=== PATIENT | female | born 1945 | race Caucasian/White ===

== ENCOUNTER 2024-12-23 10:57 | Outpatient (AMB) | payer MEDICARE, SELFPAY ==
--- NOTE | 2024-12-23 10:58 | MHC.OFFVIS ---
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 The chronic back pain has intensified over the year, with a notable increase in left lower extremity discomfort. She reports having undergone left hip replacement in 2020, after which she developed continued numbness and foot drop on the left side due to nerve damage from the surgery per patient. Patient reports EMG study was performed after hip surgery, this report is not available today for review. She reports her right hip might need replacement in the near future as well. Previous attempts at pain management have included physical therapy 6 months ago with little effect, and planned back injections at [facility] were not completed due to cancellations. The patient's low back pain exacerbates with bending, prolonged sitting especially on hard surfaces, climbing stairs and presents with associated left-sided symptoms including leg numbness, tingling and chronic left foot numbness and foot drop. MRI lumbar spine report is noted below. Pain affects her daily activities and functioning, social interactions with her family, especially grandchildren, mobility, sleep and quality of life. Denies any fever or chills, abdominal or groin pain, bladder or bowel dysfunction or saddle anesthesia. - Affect: Chronic pain impacts functionality, but not significantly affecting mood or psychological well-being. - Analgesia: Tylenol Arthritis used with noted continuous pain management needs. - Adverse Effects: None reported. - Activities of Daily Living: Altered due to pain and left foot drop, limiting prolonged walking or standing. - Aberrant Drug Related Behaviors: None noted. Location: Low back pain radiates to left buttock and posterior LLE to the knee Duration: Chronic pain, worsening over past 1 year Characteristics of symptom or complaint: Aching, dull, tiring, numbness, tingling, heavy, tiring Aggravating or associated factors: Movements, bending, climbing, prolonged sitting, standing Relieving factors: Tylenol Arthritis, duloxetine, heat therapy, movement adjustments Treatment: PT, left foot AFO, lumbar MRI, evaluations at [facility] and [facility] Medical History (Updated 12/23/24 @ 12:54 by DANITZA Irene) Vitamin D deficiency Sciatica, left side Thyroid nodule Osteoarthritis of hips, bilateral Left foot drop Hyperlipidemia Chronic kidney disease, stage 2 (mild) Lumbar degenerative disc disease Surgical History S/P removal of thyroid nodule Hx of appendectomy H/O: hysterectomy History of left hip replacement Social History Alcohol intake: current Alcohol intake frequency: a few times a week Alcohol type: beer and wine Patient Tobacco Use Status: Former Tobacco user Review of Systems Const Details: - Musculoskeletal: Reports left foot numbness, left-sided radiculopathy. Denies any recent joint swelling. - Neurological: Reports left foot drop, numbness in left leg. - Genitourinary: Reports bladder urgency post-bladder lift, denies incontinence. All systems reviewed & are unremarkable except as noted in HPI and below Physical Exam Vital Signs: Last Vital Signs Pulse 64 12/23/24 11:04 BP 133/60 12/23/24 11:04 Pulse Ox 100 12/23/24 11:04 Oxygen Delivery Method Room Air 12/23/24 11:04 General: Appears afebrile. Alert and oriented. Mood and affect appropriate. Follows and participates in conversation appropriately. Respiratory effort is unlabored. No cough. Able to transition from sit to stand unassisted. Ambulates with normal heel strike and toe off on the right. Unable to stand on left heel/toes due to foot drop; decreased sensation in left foot. Left-sided weakness noted in foot dorsiflexion and leg elevation. General: Yes no CVA tenderness Back/Spine/Pelvis Other: Limited lumbar ROM due to pain. Mildly antalgic gait, gets up with guarding her gait on the left. Mild limping. Lumbar flexion forward and bending reproduces moderate pain. Axial rotation and extension reproduces mild pain. No midline tenderness in the thoracic or lumbar spine. Demonstrates 5/5 right 4/5 left strength of quadriceps bilaterally as well as 3/5 left and 5/5 right flexion/dorsiflexion of bilateral feet against resistance. 2+ pedal pulses bilaterally. Straight leg rise with dorsiflexion negative bilaterally. +2 patellar and absent left and diminished right achilles reflexes bilaterally. Facet loading test positive bilaterally. Pepper sign positive on the left, Adrián?sis negative on the right, not tested on left due to previous SHIRLEY, Pelvic compression and Stinchfield tests are positive on the left. No groin pain with I/E hip rotations. Valsalva maneuver negative. Back: no CVA tenderness Cervical Spine: cervical ROM normal, No cervical muscular tenderness and No Cervical spine tenderness Thoracic/Lumbar Spine: thoracic and lumbar spine normal to inspection, No Thoracic/lumbar spine scar(s), Lasegue's sign negative, straight leg raise negative bilaterally, pain with thoraco-lumbar ROM, No paraspinal muscle tenderness, thoraco-lumbar ROM limited, No thoracic spinal tenderness and No lumbar spinal tenderness Pelvis: buttock tenderness on the left and sciatic notch tenderness on the left Sacroiliac joints: on the right nontender and on the left tender to palpation Results Reviewed Results Reviewed: Assessment & Plan Assessment & Plan (1) Lumbar degenerative disc disease: Code(s): M51.369 - Other intervertebral disc degeneration, lumbar region without mention of lumbar back pain or lower extremity pain Category: Medical (2) Vertebrogenic low back pain: Code(s): M54.51 - Vertebrogenic low back pain Category: Medical (3) Piriformis syndrome of left side: Code(s): G57.02 - Lesion of sciatic nerve, left lower limb Category: Medical (4) Left foot drop: Code(s): M21.372 - Foot drop, left foot Category: Medical (5) Sciatica, left side: Code(s): M54.32 - Sciatica, left side Category: Medical (6) Lumbar spondylosis: Code(s): M47.816 - Spondylosis without myelopathy or radiculopathy, lumbar region Category: Medical Plan For the patient's lumbar degenerative disc disease with left-sided radiculopathy, plan to review lumbar MRI images to confirm vertebral endplate degeneration and EMG from [facility] is also planned to assess neurological status in the left extremity. Discussed potential interventions for chronic low back pain with sciatica including diagnostic vs therapeutic injections, neuromodulation with temporary and permanent stimulation, and ablation procedures, including RFA and BVN ablation. Emphasized possible risks and ensured understanding before obtaining patient consent for procedures. Aim to achieve functional improvement and pain reduction through minimal invasive interventions. Schedule left piriformis muscle diagnostic nerve block with local and fluoroscopy. Expectations, risks and benefits were reviewed. Patient is aware she will be contacted to schedule this procedure. All questions were answered and the patient is in agreement of plan. Follow-up after injections and sooner as needed. Patient was informed and verbally consented to the use of an ambient scribe for clinic note documentation during this visit. Patient Instructions: I discussed with the patient and her that management will engage MRI review and EMG for thorough evaluation of her spinal and neurological status. We reviewed options for managing axial low back pain, lumbar degenerative disc disease with Modic type II endplate changes and associated left buttock pain including planned fluoroscopy-guided nerve block injections for piriformis muscle pain once insurance approval is obtained. I informed the patient of potential procedural risks including pain exacerbation and nerve irritation. Provided assurance through the use of continuous feedback and fluoroscopy guidance during the procedure. Discussed possible insurance timelines; permissible adjustments when cancellations arise. Consent obtained for further diagnostics and outlined potential for future interventions depending on findings. 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 - Expect a call regarding scheduling pending insurance approval for nerve block injections. - Continue using Tylenol Arthritis as needed for pain management. - Report any adverse reactions following upcoming procedures or if new symptoms arise. - Avoid using Aspirin if undergoing injection procedure preparation. - Maintain movement to avoid stiffness but avoid activities aggravating pain, such as prolonged bending or heavy lifting. Coding Level of Care Code New Pt Level 4 (60103) Complex EM visit Add On G2211 Diagnoses Lumbar degenerative disc disease M51.369 Vertebrogenic low back pain M54.51 Piriformis syndrome of left side G57.02 Left foot drop M21.372 Sciatica, left side M54.32 Lumbar spondylosis M47.816
[2024-12-23 11:04] VITALS: BP 133/60; PULSE 64; O2SAT 100; BMI 26.4
--- OUTSIDE RECORDS SUMMARY | 2024-12-23 12:23 | XMS_ITS | Clinical Summary ---
Author Organization [facility] Address [address] [address] Phone Care Team Providers Care Trader Fixed Income Name Role Phone Jacqueline Parrish Primary Care Provider Allergies No known active allergies Medications Medication Sig Dispensed Refills Start Date End Date Status pravastatin (PRAVACHOL) 80 MG tablet 02/27/2023 Active DULoxetine (CYMBALTA) 60 MG capsule 02/28/2023 Active Active Problems No known active problems Social History Tobacco Use Types Packs/Day Years Used Date Smoking Tobacco: Never Assessed Education Answer Date Recorded Are you interested in more education? Not on mook e 02/11/2023 Are you concerned about learning? Not on file 02/11/2023 No 02/11/2023 No 02/11/2023 Digital Access Answer Date Recorded No 03/12/2023 No 03/12/2023 No 03/12/2023 Reliable internet access at home? Not on file 03/12/2023 Device with a working camera? Not on file Sex and Gender Information Value Date Recorded Sex Assigned at Not on file Gender Identity Not on file Sexual Orientation Not on file Plan of Treatment Health Maintenance Due Date Last Done Comments Adult Td,Tdap Booster 1945 DEPRESSION SCREENING 1959 SMOKING Hx and SMOKELESS TOBACCO SCREENING 12/13/1960 HEPATITIS C SCREENING 12/13/1965 PNEUMOCOCCAL VACCINES (50+ years) (1 of 1 - PCV) 12/13/1997 OSTEOPOROSIS SCREENING INITI AL (ONE-TIME) 12/13/2012 RSV VACCINE (1 - 1-dose 75+ series) 12/13/2022 ZOSTER VACCINES (2 of 2) 09/25/2023 07/31/2023 INFLUENZA VACCINE (#1) 2024 COVID-19 VACCINE (3 - 2023-2 5 season) 2024 01/14/2021, 12/17/2020 LIPID PANEL 03/01/2029 03/01/2024 HEPATITIS A VACCINES Aged Out No long er eligible based on patient's age to complete this topic HIB VACCINES Aged Out No longer eligi ble based on patient's age to complete this topic MENINGOCOCCAL VACCINES (ACWY) Aged Out No longer eligible based on patient's age to complete this topic Medical Devices Not on file Procedures Procedure Name Priority Date/Time Associated Diagnosis Comments LIPID PANEL Routine 03/01/2024 9:38 AM EDT Stage 2 chronic kidney disease Hyperlipidemia, unspecified hyperlipidemia type from Last 3 Months or Most Recently Relevant to Health Maintenance Results * (ABNORMAL) Lipid panel (03/01/2024 9:38 AM EDT) HDL 72 mg/dL [facility] Comment: ? Interpretation <40 mg/dL: Low HDL cholesterol (major risk factor for CHD) Greater than or equal to 60 mg/dL: High HDL cholesterol ( negative risk factor for CHD) HDL - cholesterol is affected by a number of factors, e.g. smoking, excerise, hormones, sex and age. CHOLESTEROL 182 0 - 240 mg/dL [facility] TRIGLYCERIDES 99 30 - 160 mg/dL [facility] LDL 90 50 - 129 mg/dL [facility] Comment: LDL levels in terms of risk for coronary heart disease: <100 mg/dL: Optimal 100-129 mg/dL: Near or above optimal 130-159 mg/dL: Borderline high 160-189 mg/dL: High >190 mg/dL: Very High CARDIAC RISK RATIO 2.5(L) 3.3 - 4.4 C [facility] Blood 03/01/2024 9:38 AM EDT 03/01/2024 9:47 AM EDT Jacqueline NIETO LAB BLOOD ORDERABLES [facility] [address] [place] [address] from Last 3 Months or Most Recently Relevant to Health Maintenance Care Teams Trader Fixed Income Relationship Specialty Start Date End Date Jacqueline Parrish [place] [employer] [place] [address] PCP - General 09/16/22 Additional Source Comments The information contained in this document represents components of the legal health record. It is not the complete legal health record.[facility]
--- OUTSIDE RECORDS SUMMARY | 2024-12-23 12:23 | XMS_ITS | Clinical Summary ---
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 Role Phone Unavailable Primary Care Provider Unavailabl e Social History Tobacco Use Types Packs/Day Years Used Date Smoking Tobacco: Never Assessed Comments Unknown Sex and Gender Information Value Date Recorded Sex Assigned at Not on file Legal Sex Female 1:27 PM EDT Gender Identity Not on file Sexual Orientation Not on file Plan of Treatment Health Maintenance Due Date Last Done Comments Depression: Screening Annual ly using PHQ-2/9 in Adults 18 yrs or above (or HM Modifier)([facility]) 12/13/1965 Hepatitis C Virus Infection in Adolescents and Adults: Screening (or Modifier) ([facility]) 12/13/1965 SDOH Screening Reminder: Seda gilmar for all adults ([facility]) 12/13/1965 Tobacco Smoking Cessation: i n Adults excluding Women: Behavioral and Pharmacotherapy Interventions ([facility]) 12/13/1965 DTaP/Tdap/Td Vaccines ([facility]) (1 - Tdap) 12/13/1966 Lipid Screening: Every 5 yrs for Women aged 45+ (or HM Modifier) ([facility]) 12/13/1993 Pneumococcal Vaccination Scr eening: Patients 65+ yrs of age ([facility]) (1 of 1 - PCV) 12/13/1997 Zoster/Shingles Vaccine Seri es Screening: Adults aged 18+ yrs (or HM Modifiers)([facility]) (1 of 2) 12/13/1997 Osteoporosis Screening to Pr event Fractures: Women aged 65 years+ ([facility]) 12/13/2012 RSV Vaccines (1 - 1-dose 75+ series) 12/13/2022 Flu Vaccination: Ages 65+: Y early High Dose Recommended (or Modifier)([facility]) 05/16/2024 COVID-19 Vaccine Screening: Initial Series and Booster Status ([facility]) (2023- season) 2024 Medical Devices Not on file Insurance [facility]
--- OUTSIDE RECORDS SUMMARY | 2024-12-23 12:23 | XMS_ITS | Encounter Summary ---
Author Organization 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 Role Phone Jacqueline Parrish Primary Care Provider [phone] Encounter Details Date Type Department Care Team (Late st Contact Info) Description 09/16/2022 Transcribe Orders Virtual Department [address] [place] [address] Jacqueline Parrish PA [address] [place] [id number] Dizziness (Primary Dx) Social History Tobacco Use Types Packs/Day Years Used Date Smoking Tobacco: Never Assessed Sex and Gender Information Value Date Recorded Sex Assigned at Not on file Gender Identity Not on file Sexual Orientation Not on file documented as of this encounter Plan of Treatment Not on file documented as of this encounter Visit Diagnoses Diagnosis Dizziness- Primary Dizziness and giddiness documented in this encounter Care Teams Class B Truck Driver Relationship Specialty Start Date End Date Jacqueline Parrish PA [address] [place] [id number] PCP - General 09/16/22 documented as of this encounter Additional Source Comments The information contained in this document represents components of the legal health record. It is not the complete legal health record.[facility]
--- OUTSIDE RECORDS SUMMARY | 2024-12-23 12:24 | XMS_ITS | Continuity of Care Document ---
Author Organization [facility] Address [address] [place] [address]- Care Team Providers Care Product Development Director Name Role Phone Den Nash Primary Care Physician [phone] Encounter [facility] Date(s): 11/14/24 - 12/14/24 [facility] [address] [place] [address]- Encounter Type: Triage Allergies, Adverse Reactions, Alerts No Known Allergies Immunizations Given and Recorded Vaccine Date Status Refusal Reason zoster vaccine, inactivated 11/18/23 Recorded zoster vaccine, inactivated 07/31/23 Recorded SARS-CoV-2 (COVID-19) mRNA-1273 vaccine 01/14/21 R ecorded SARS-CoV-2 (COVID-19) mRNA-1273 vaccine 12/17/20 R ecorded Medications calcium (as carbonate) 500 mg oral tablet, chewable 1 tablet = 500 mg, Daily, 0 Refills, Maintenance, 02/13/24 1:18:00 PM EDT, Partial fill upon patientrequest if the prescription is for a schedule II opioid drug. Start Date: 02/13/24 Status: Ordered Repeat number: 1 duloxetine 60 mg oral enteric coated capsule 1 capsule = 60 mg, By Mouth, Daily, # 90 capsule, 3 Refills, Maintenance, 09/14/21 12:26:00 PM EST,EC Capsule, [facility], Partial fill upon patient request if the prescription is for a schedule II opioid drug., 156, cm, 03/26/21 9:23:00 EDT, Height, 62.6, kg, 03/01/21 10:52:00 EDT, Dry Weight Start Date: 09/14/21 Status: Ordered Quantity: 90.0 Unit: capsule Repeat number: 4 mirabegron 50 mg oral tablet, extended release 1 tablet = 50 mg, By Mouth, Daily, do not crush or chew, # 30 tablet, 5 Refills, Maintenance, 07/09/24 9:12:00 AM EDT, ER Tablet, [facility]/pharmacy #[id number], Partial fill upon patient request if the prescription is for a schedule II opioid drug., 155, cm, 04/08/24 11:04:00 EDT, Height, 65.8, kg, 04/08/24 11:04:00 EDT, Dry Weight Start Date: 07/09/24 Status: Ordered Quantity: 30.0 Unit: tablet Repeat number: 6 Rosuvastatin = 40 mg, By Mouth, Daily at bedtime, 0 Refills, Maintenance, 04/04/24 4:44:00 PM EDT, Partial fill upon patient request if the prescription is for a schedule II opioid drug. Start Date: 04/04/24 Status: Ordered Repeat number: 1 Tylenol 325 mg oral tablet 650 mg, 2, tablet, By Mouth, Every 4 hours, PRN, # 50 tablet, Refills 0, Tot. Refills 0, Maintenance, for pain, 04/08/24 1:18:00 PM EDT, Route to Pharmacy Electronically, [facility]/pharmacy #[id number], Partial fill upon patient request if the prescription is for a schedule II opioid drug., 155, cm, 04/08/24 11:04:00 EDT, Height, 65.8, kg, 04/08/24 11:04:00 EDT, Dry Weight Start Date: 04/08/24 Status: Ordered Quantity: 50.0 Unit: tablet Repeat number: 1 Vitamin C 250 mg oral tablet 1 tablet = 250 mg, By Mouth, Daily, 0 Refills, Maintenance, 02/13/24 1:17:00 PM EDT, Partial fill upon patient request if the prescription is for a schedule II opioid drug. Start Date: 02/13/24 Status: Ordered Repeat number: 1 Problem List Condition Confirmation Course Effective Dates Status H ealth Status Informant Chronic kidney disease, stage 2 (mild) Confirmed Active Other intervertebral disc degeneration, lumbar region Confirmed Active Left foot drop Confirmed Active Hyperlipidemia, unspecified Confirmed Active OA (osteoarthritis) of hip; bilateral Confirmed Active Sciatica of left side Confirmed Active Thyroid nodule Confirmed Active Vitamin D deficiency, unspecified Confirmed Active Procedures Procedure Date Related Diagnosis Body Site Status Bladder care/ Implant; Lift 1 04/08/24 Completed Appendectomy Completed Thyroid nodule Removed 2 Completed 1Notes in [facility] 2per previous PCP notes: Nodule removed from thyroid at [facility] (in ) Social History Social History Type Response Smoking Status Former smoker; Tobac co user in household: No; Other: Quit 1970; entered on: 03/05/18 Sex Sex Representation Female (finding) Patient Care team information Care Team Personnel Name: Keke Contreras RN Position: [facility] RN Member Role: Primary Care Nurse Name: Den Nash Position: [facility] PCO Associate Professional Member Role: PCP Address: [address] [place] [address] Telecom: Care Team Related Persons Name: YANIV MCFARLAND Insurance Providers Guarantor name: MARGI CMFARLAND Health Plan Information #: 1 Payer: MEDICARE PART B OUTPT Member Number: NA Policy Number: NA Group Number: NA Health Plan Information #: 2 Payer: MEDEX Member Number: NA Policy Number: NA Group Number: NA
--- OUTSIDE RECORDS SUMMARY | 2024-12-23 12:24 | XMS_ITS | Continuity of Care Document ---
Author Organization [facility] [employer] Address [address] [place] [address], [address] [place] [address]- Care Team Providers Care Music Cataloguer Name Role Phone Claire Lambert MD Primary Care Physician [phone] [place] [facility] [place]): [place] 11/27/24 [facility] [employer] [employer] [address], [address] [place], [place] [address] Encounter Type: Triage Allergies, Adverse Reactions, Alerts [...] Refills, Maintenance, 09/14/21 12:26:00 PM EST,EC Capsule, [facility], Partial fill upon patient request if the prescription is for a schedule II opioid drug., 156, cm, 03/26/21 9:23:00 EDT, Height, 62.6, kg, 03/01/21 10:52:00 EDT, Dry Weight Start Date: 09/14/21 Status: Ordered Quantity: 90.0 Unit: capsule Repeat number: 4 ibuprofen 600 mg oral tablet 600 mg, 1, tablet, By Mouth, 4 times a day, PRN, # 40 tablet, Refills 0, Tot. Refills 0, Maintenance, for pain, 04/08/24 1:18:00 PM EDT, Route to Pharmacy Electronically, [facility]/pharmacy #[id number], Partial fill upon patient request if the prescription is for a schedule II opioid drug., 155, cm, 04/08/24 11:04:00 EDT, Height, 65.8, kg, 04/08/24 11:04:00 EDT, Dry Weight Start Date: 04/08/24 Status: Ordered Quantity: 40.0 Unit: tablet Repeat number: 1 mirabegron 25 mg oral tablet, extended release 1 tablet = 25 mg, By Mouth, Daily, do not crush or chew, # 30 tablet, 6 Refills, Maintenance, 06/11/24 11:20:00 AM EDT, ER Tablet, [facility]/pharmacy #[id number], Partial fill upon patient request if the prescription is for a schedule II opioid drug., 155, cm, 04/08/24 11:04:00 EDT, Height, 65.8, kg, 04/08/24 11:04:00 EDT, Dry Weight Start Date: 06/11/24 Status: Ordered Quantity: 30.0 Unit: tablet Repeat number: 7 mirabegron 50 mg oral tablet, extended release 1 tablet = 50 mg, By Mouth, Daily, do not crush or chew, # 30 tablet, 5 Refills, Maintenance, 07/09/24 9:12:00 AM EDT, ER Tablet, [facility]/pharmacy #[id number], Partial fill upon patient request [...] 1:18:00 PM EDT, Route to Pharmacy Electronically, [facility]/pharmacy #[id number], Partial fill upon patient request [...] Effective Dates Status H ealth Status Informant Carpal tunnel syndrome, bilateral upper limbs Confirmed Active Chronic kidney disease, stage 2 (mild) Confirmed Active Other intervertebral disc degeneration, lumbar region Confirmed Active History of squamous cell carcinoma, removed 1 Confirmed Active Hyperlipidemia, unspecified Confirmed Active Dermatitis, unspecified 2 Confirmed Active OA (osteoarthritis) of hip; bilateral Confirmed Active Thyroid nodule Confirmed Active Vitamin D deficiency, unspecified Confirmed Active 1Dr Jeff, Derm 2Per previous PCP notes: dyshidrotic eczema Social History Social History Type Response Smoking Status Former smoker; Tobac co user in household: No; Other: Quit 1970; entered on: 03/05/18 Sex Sex Representation Female (finding) Patient Care team information Care Team Personnel Name: Claire Lambert MD Position: [facility] Outreach Member Role: PCP Address: [address] [place] [address] [place] [address]- Telecom: Name: Keke Contreras RN Position: [facility] RN Member Role: Primary Care Nurse Care Team Related Persons Name: YANIV MCFARLAND Insurance Providers Guarantor name: MARGI MCFARLAND Certess Plan Information #: 1 Payer: MEDICARE PART B OUTPT Member Number: ANGELO Policy Number: NA Group Number: NA Health Plan Information #: 2 Payer: MEDEX Member Number: NA Policy Number: NA Group Number: NA
== END 2024-12-23 11:34 | disposition home or self-care (01) ==
PROVIDERS: PCP Physician Assistant; Visit Provider Nurse Practitioner Family
DX: M51.369 Other intervertebral disc degeneration, lumbar region without mention of lumbar back pain or lower extremity pain (principal); M54.51 Vertebrogenic low back pain; G57.02 Lesion of sciatic nerve, left lower limb; M21.372 Foot drop, left foot; M54.32 Sciatica, left side; M47.816 Spondylosis without myelopathy or radiculopathy, lumbar region
CPT/HCPCS: 99204; G2211

== ENCOUNTER → 2024-12-23 10:57 | Outpatient (BNVA) | payer MEDICARE, SELFPAY | PROVIDERS: PCP Physician Assistant; Visit Provider Nurse Practitioner Family | DX: M51.369 Other intervertebral disc degeneration, lumbar region without mention of lumbar back pain or lower extremity pain (principal); M54.51 Vertebrogenic low back pain; G57.02 Lesion of sciatic nerve, left lower limb; M21.372 Foot drop, left foot; M54.32 Sciatica, left side; M47.816 Spondylosis without myelopathy or radiculopathy, lumbar region | CPT/HCPCS: 99202 ==

== ENCOUNTER 2025-01-23 06:13 | Outpatient (REF) | payer MEDICARE, SELFPAY ==
--- NOTE | ~2025-01-23 | FL_ITS ---
EXAMINATION: XR FLUOROSCOPY WITH IMAGES CLINICAL INFORMATION: Lesion of left sciatic nerve, pain management procedure. COMPARISON: None available. TECHNIQUE: Fluoroscopy provided to: Dr. Ocampo Fluoroscopy time: 16.5 seconds DAP: 0.8763 Gycm2 Images: 2 FINDINGS: 2 fluoroscopic spot images of the left sacrum during pain management injection. Please refer to the full operative report for detail. FL/FL guidance in treatment room IMPRESSION: Fluoroscopic guidance. Electronically signed by: Rubin Ward MD 01/23/2025 02:51 PM EDT
== END 2025-01-23 06:14 | disposition home or self-care (01) ==
LOC: CF 06:13
PROVIDERS: Visit Provider Internal Medicine
DX: G57.02 Lesion of sciatic nerve, left lower limb (principal)
CPT/HCPCS: 20552; 77002; J2003; J2795; Q9967

== ENCOUNTER 2025-01-23 11:34 | Outpatient (AMB) | payer MEDICARE, SELFPAY ==
[2025-01-23 11:37] VITALS: BP 117/53; PULSE 61; RESP 16; O2SAT 100
--- NOTE | 2025-01-23 11:37 | MHC.OFFVIS ---
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 Denies any recent cough, cold, infection, fever or other significant changes in medical history since last office visit. [facility] Medical History (Updated 12/23/24 @ 12:54 by DANITZA Irene) Vitamin D deficiency Sciatica, left side Thyroid nodule Osteoarthritis of hips, bilateral Left foot drop Hyperlipidemia Chronic kidney disease, stage 2 (mild) Lumbar degenerative disc disease Surgical History S/P removal of thyroid nodule Hx of appendectomy H/O: hysterectomy History of left hip replacement Social History Alcohol intake: current Alcohol intake frequency: a few times a week Alcohol type: beer and wine Patient Tobacco Use Status: Former Tobacco user Physical Exam Vital Signs: Last Vital Signs Pulse 61 01/23/25 11:37 Resp 16 01/23/25 11:37 BP 117/53 L 01/23/25 11:37 Pulse Ox 100 01/23/25 11:37 Oxygen Delivery Method Room Air 01/23/25 11:37 Office Procedures AMB Joint Injection/Aspiration Joint Injection/Aspiration Details: Piriformis Muscle Injection, fluoroscopy guided, Left The procedure, its benefits, and its risks were explained and written informed consent was obtained from the patient. Immediately prior to starting the procedure, a time-out safety check was conducted. The patient's identification, procedure name, procedure site, and procedure laterality were confirmed with the patient. ?? Patient was placed prone on the fluoroscopy table and the lumbosacral area was prepped using ChloraPrep and draped with sterile drape in standard fashion. The C-arm was placed in an AP orientation. The skin and subcutaneous tissue was anesthetized using 1 mL of 0.75% plain lidocaine with 1.5-inch 25-gauge needle overlying the inferior edge of the sacroiliac joint.? A 3.5-inch 22-gauge spinal needle was slowly advanced towards the expected course of the muscle. Intra-muscular position was confirmed with contrast injection and spread pattern consistent with the piriformis muscle.? A total volume of 3 mL of solution containing 0.5% of ropivacaine was injected intra-muscularly. The stylet was reinserted and needle was removed. The patient tolerated the procedure well. Patient denied any lower extremity weakness or numbness. Patient was observed for 30 min and was discharged after fulfilling the standard discharge criteria. Coding Additional procedure code (CPT) needed Assessment & Plan Assessment & Plan (1) Piriformis syndrome of left side: Code(s): G57.02 - Lesion of sciatic nerve, left lower limb Category: Medical Plan Patient is status post left piriformis muscle diagnostic injection. Patient tolerated procedure well and was discharged home in stable condition with discharge instructions. All questions were answered. We will follow-up via telephone or in clinic to assess response to therapy. A follow-up appointment was made during today's visit. Orders: Orders FL guidance in treatment room Today G57.02 - Lesion of sciatic nerve, left lower limb Coding Level of Care Code Procedure Only Diagnoses Piriformis syndrome of left side G57.02
[2025-01-23 12:24] VITALS: BP 129/59; PULSE 61; RESP 16; O2SAT 100
--- OUTSIDE RECORDS SUMMARY | 2025-01-23 14:06 | XMS_ITS | Encounter Summary ---
Author Organization [facility] Address [address] [place] [address] Phone Care Team Providers Care Smalltalk Developer Name Role Phone Jacqueline Parrish Primary Care Provider Encounter Details Date Type Department Care Team (Late st Contact Info) Description 09/16/2022 Transcribe Orders Virtual Department [address] [place] [address] Jacqueline Parrish PA [address] [place] [id number] Dizziness (Primary Dx) Social History Tobacco Use [...] giddiness documented in this encounter Care Teams Smalltalk Developer Relationship Specialty Start Date End Date Jacqueline Parrish PA [address] [place] [address] PCP - General 09/16/22 documented as of this encounter Additional Source Comments The information contained in this document represents components of the legal health record. It is not the complete legal health record.[facility]
--- OUTSIDE RECORDS SUMMARY | 2025-01-23 14:06 | XMS_ITS | Clinical Summary ---
Author Organization [facility] [employer] [facility] lin Address [address] [place] [address] Care Team Providers Care Event Planner Name Role Phone Unavailable Primary Care Provider [...] Adults 18 yrs or above (or HM Modifier)([facility]) 1945 Hepatitis C Virus Infection in Adolescents and Adults: Screening (or Modifier) ([facility]) 12/13/1965 SDOH Screening Reminder: Seda ually for all adults ([facility]) 12/13/1965 Tobacco Smoking Cessation: i n Adults excluding Women: Behavioral and Pharmacotherapy Interventions ([facility]) 12/13/1965 DTaP/Tdap/Td Vaccines ([facility]) (1 - Tdap) 12/13/1966 Lipid Screening: Every 5 yrs for Women aged 45+ (or HM Modifier) ([facility]) 12/13/1993 Pneumococcal Vaccination Scr eening: Patients 50+ yrs of age ([facility]) (1 of 1 - PCV) 12/13/1997 Zoster/Shingles Vaccine Seri es Screening: Adults aged 18+ yrs (or HM Modifiers)([facility]) (1 of 2) 12/13/1997 Osteoporosis Screening to Pr event Fractures: Women aged 65 years+ ([facility]) 12/13/2012 RSV Vaccines (1 - 1-dose 75+ series) 12/13/2022 Flu Vaccination: Ages 65+: Y early High Dose Recommended (or Modifier)([facility]) 05/16/2024 COVID-19 Vaccine Screening: Initial Series and Booster Status ([facility]) (2023- season) 2024 Medical Devices Not on file Insurance [facility]
--- OUTSIDE RECORDS SUMMARY | 2025-01-23 14:06 | XMS_ITS | Clinical Summary ---
Author Organization [facility] Address [address] [place] [address] Phone Care Team Providers Care Neurology Hospitalist Name Role Phone Jacqueline Parrish Primary Care [...] (03/01/2024 9:38 AM EDT) HDL 72 mg/dL [facility] Comment: ? Interpretation <40 mg/dL: Low HDL cholesterol (major risk factor for CHD) Greater than or equal to 60 mg/dL: High HDL cholesterol ( negative risk factor for CHD) HDL - cholesterol is affected by a number of factors, e.g. smoking, excerise, hormones, sex and age. CHOLESTEROL 182 0 - 240 mg/dL [facility] TRIGLYCERIDES 99 30 - 160 mg/dL [facility] LDL 90 50 - 129 mg/dL [facility] Comment: LDL levels in terms of risk for coronary heart disease: <100 mg/dL: Optimal 100-129 mg/dL: Near or above optimal 130-159 mg/dL: Borderline high 160-189 mg/dL: High >190 mg/dL: Very High CARDIAC RISK RATIO 2.5(L) 3.3 - 4.4 [facility] Blood 03/01/2024 9:38 AM EDT 03/01/2024 9:47 AM EDT Jacqueline NIETO LAB BLOOD ORDERABLES [facility] [address] [place] [address] from Last 3 Months or Most Recently Relevant to Health Maintenance Care Teams Neurology Hospitalist Relationship Specialty Start Date End Date Jac[place] [address] PCP - General 09/16/22 Additional Source Comments The information contained in this document represents components of the legal health record. It is not the complete legal health record.[facility]
== END 2025-01-23 12:25 | disposition home or self-care (01) ==
LOC: HO.PMCPRC 11:34
PROVIDERS: PCP Physician Assistant; Visit Provider Internal Medicine
DX: M79.18 Myalgia, other site (principal); G57.02 Lesion of sciatic nerve, left lower limb
CPT/HCPCS: 20552

== ENCOUNTER 2025-01-30 09:52 | Outpatient (AMB) | payer MEDICARE, SELFPAY ==
--- NOTE | 2025-01-30 09:59 | A.OFFVIS_ITS ---
Vital Signs 3 01/30/25 10:04 Height 5 ft 1 in Weight 138 lb BMI 26.1 BP 136/62 Blood Pressure Location Lt brachial Position Sitting Pulse 60 Pulse Source Pulse Oximeter Pulse Oximetry (%) 98 Oxygen Delivery Method Room Air Intake Visit Reasons: s/p left Dx piriformis inj Intake Note: Pain today 05/25 Yarn Twister Required: No Accompanied by: Spouse Allergies No Known Allergies Allergy (Verified 01/30/25 10:05) HPI Comments Details: The patient is a 79-year-old female presenting with piriformis syndrome. She initially received a diagnostic left piriformis muscle injection on January 23, 2025, by Dr. Ocampo to evaluate symptom improvement. The patient reported pain relief for almost one day post-procedure. However, pain returned the following day. Following the injection, she rested and noticed that sitting on a hard surface or porlonged sitting did not increase her discomfort. This reaction indicated a positive diagnostic response. She is interested to proceed with therapeutic injection as next steps. Denies any recent cough, cold, infection, fever or other significant changes in medical history since last office visit. Past Procedures: 01/23/25: Left Piriformis Muscle Injection-85% pain relief for 18 hours PRIOR: The patient is a very pleasant 79-year-old female presenting with low back pain related to lumbar degenerative disc disease and left-sided radiculopathy. The chronic back pain has intensified over the year, with a notable increase in left lower extremity discomfort. She reports having undergone left hip replacement in 2020, after which she developed continued numbness and foot drop on the left side due to nerve damage from the surgery per patient. Patient reports EMG study was performed after hip surgery, this report is not available today for review. She reports her right hip might need replacement in the near future as well. Previous attempts at pain management have included physical therapy 6 months ago with little effect, and planned back injections at [facility] were not completed due to cancellations. The patient's low back pain exacerbates with bending, prolonged sitting especially on hard surfaces, climbing stairs and presents with associated left-sided symptoms including leg numbness, tingling and chronic left foot numbness and foot drop. MRI lumbar spine report is noted below. Pain affects her daily activities and functioning, social interactions with her family, especially grandchildren, mobility, sleep and quality of life. Denies any fever or chills, abdominal or groin pain, bladder or bowel dysfunction or saddle anesthesia. - Affect: Chronic pain impacts functionality, but not significantly affecting mood or psychological well-being. - Analgesia: Tylenol Arthritis used with noted continuous pain management needs. - Adverse Effects: None reported. - Activities of Daily Living: Altered due to pain and left foot drop, limiting prolonged walking or standing. - Aberrant Drug Related Behaviors: None noted. Location: Low back pain radiates to left buttock and posterior LLE to the knee Duration: Chronic pain, worsening over past 1 year Characteristics of symptom or complaint: Aching, dull, tiring, numbness, tingling, heavy, tiring Aggravating or associated factors: Movements, bending, climbing, prolonged sitting, standing Relieving factors: Tylenol Arthritis, duloxetine, heat therapy, movement adjustments Treatment: PT, left foot AFO, lumbar MRI, evaluations at [facility] and [facility] Medical History Vitamin D deficiency Sciatica, left side Thyroid nodule Osteoarthritis of hips, bilateral Left foot drop Hyperlipidemia Chronic kidney disease, stage 2 (mild) Lumbar degenerative disc disease Surgical History S/P removal of thyroid nodule Hx of appendectomy H/O: hysterectomy History of left hip replacement Social History Alcohol intake: current Alcohol intake frequency: a few times a week Alcohol type: beer and wine Patient Tobacco Use Status: Former Tobacco user Review of Systems Const All systems reviewed & are unremarkable except as noted in HPI and below Physical Exam Vital Signs: Last Vital Signs Pulse 60 01/30/25 10:04 BP 136/62 01/30/25 10:04 Pulse Ox 98 01/30/25 10:04 Oxygen Delivery Method Room Air 01/30/25 10:04 BMI result Body Mass Index 26.1 General: Appears afebrile. Alert and oriented. Mood and affect appropriate. Follows and participates in conversation appropriately. Respiratory effort is unlabored. No cough. Able to transition from sit to stand unassisted. Ambulates with normal heel strike and toe off on the right. Unable to stand on left heel/toes due to foot drop. General: Yes no CVA tenderness Back/Spine/Pelvis Back: no CVA tenderness Cervical Spine: cervical ROM normal Thoracic/Lumbar Spine: thoracic and lumbar spine normal to inspection, No Thoracic/lumbar spine scar(s), Lasegue's sign negative, straight leg raise negative bilaterally, pain with thoraco-lumbar ROM, No paraspinal muscle tenderness, thoraco-lumbar ROM limited, No thoracic spinal tenderness and No lumbar spinal tenderness Pelvis: buttock tenderness (Piriformis muscle tenderness) on the left Sacroiliac joints: on the right nontender and on the left tender to palpation Results Reviewed Results Reviewed: Assessment & Plan Assessment & Plan (1) Piriformis syndrome of left side: Code(s): G57.02 - Lesion of sciatic nerve, left lower limb Category: Medical (2) Lumbar spondylosis: Code(s): M47.816 - Spondylosis without myelopathy or radiculopathy, lumbar region Category: Medical (3) Sciatica, left side: Code(s): M54.32 - Sciatica, left side Category: Medical Plan The patient responded positively to a diagnostic left piriformis injection, indicating we should proceed with a therapeutic steroid injection. This decision is supported by the initial pain relief aligning with piriformis syndrome treatment. Schedule left piriformis muscle therapeutic nerve block with local and fluoroscopy. Expectations, risks and benefits were reviewed. Patient is aware she will be contacted to schedule this procedure. All questions were answered and the patient is in agreement of plan. Follow-up after injections and sooner as needed. Patient was informed and verbally consented to the use of an ambient scribe for clinic note documentation during this visit. Patient Instructions: - Schedule therapeutic injection with steroids as planned. - Monitor for any changes in symptoms. - Rest as needed and avoid activities that might exacerbate pain. - Follow up post-procedure to evaluate pain levels and effectiveness. - Contact us if there are any unexpected changes or concerns following treatment. Coding Level of Care Code Est Pt Level 3 (04746) Complex EM visit Add On G2211 Diagnoses Piriformis syndrome of left side G57.02 Lumbar spondylosis M47.816 Sciatica, left side M54.32
[2025-01-30 10:04] VITALS: BP 136/62; PULSE 60; O2SAT 98; BMI 26.1
--- OUTSIDE RECORDS SUMMARY | 2025-01-30 11:30 | XMS_ITS | Clinical Summary ---
Author Organization [facility] [employer] [facility] lin Address [address] [place] [address] Care Team Providers Care Yeast Pumper Name Role Phone Unavailable Primary Care Provider [...] Adults 18 yrs or above (or HM Modifier)([facility]) 1945 Hepatitis C Virus Infection in Adolescents and Adults: Screening (or Modifier) ([facility]) 12/13/1965 SDOH Screening Reminder: Seda ually for all adults ([facility]) 12/13/1965 Tobacco Smoking Cessation: i n Adults excluding Women: Behavioral and Pharmacotherapy Interventions ([facility]) 12/13/1965 DTaP/Tdap/Td Vaccines ([facility]) (1 - Tdap) 12/13/1966 Lipid Screening: Every 5 yrs for Women aged 45+ (or HM Modifier) ([facility]) 12/13/1993 Pneumococcal Vaccination Scr eening: Patients 50+ yrs of age ([facility]) (1 of 1 - PCV) 12/13/1997 Zoster/Shingles Vaccine Seri es Screening: Adults aged 18+ yrs (or HM Modifiers)([facility]) (1 of 2) 12/13/1997 Osteoporosis Screening to Pr event Fractures: Women aged 65 years+ ([facility]) 12/13/2012 RSV Vaccines (1 - 1-dose 75+ series) 12/13/2022 Flu Vaccination: Ages 65+: Y early High Dose Recommended (or Modifier)([facility]) 05/16/2024 COVID-19 Vaccine Screening: Initial Series and Booster Status ([facility]) (2023- season) 2024 Medical Devices Not on file Insurance [facility]
== END 2025-01-30 10:17 | disposition home or self-care (01) ==
LOC: HO.PMC 09:53
PROVIDERS: PCP Physician Assistant; Visit Provider Nurse Practitioner Family
DX: G57.02 Lesion of sciatic nerve, left lower limb (principal); M47.816 Spondylosis without myelopathy or radiculopathy, lumbar region
CPT/HCPCS: 99213; G2211

== ENCOUNTER → 2025-01-30 09:52 | Outpatient (BNVA) | payer MEDICARE, SELFPAY | PROVIDERS: PCP Physician Assistant; Visit Provider Nurse Practitioner Family | DX: M54.32 Sciatica, left side (principal); M47.816 Spondylosis without myelopathy or radiculopathy, lumbar region | CPT/HCPCS: 99212 ==

== ENCOUNTER 2025-03-06 06:16 | Outpatient (REF) | payer MEDICARE, SELFPAY ==
--- NOTE | ~2025-03-06 | FL_ITS ---
EXAMINATION: FL GUIDANCE ONLY HISTORY: G57.02 - Lesion of sciatic nerve, left lower limb COMPARISON: None available. TECHNIQUE: Fluoroscopy time: 0.1 minutes. Cumulative Dose: 2.67 mGy. DAP: 0.0225 mGym2 Images: 2. FINDINGS: Fluoroscopic spot films of the pelvis demonstrate a needle and contrast material outlining muscle. FL/FL guidance in treatment room IMPRESSION: Fluoroscopy during procedure. Please see procedure report for additional information. Electronically signed by: Reid Duncan MD 03/06/2025 01:02 PM EDT
--- OUTSIDE RECORDS SUMMARY | 2025-03-06 06:20 | XMS_ITS | Clinical Summary ---
Author Organization [facility] [employer] lin Address [address] [place] [address] Care Team Providers Care Bench Assembler Electrical Name Role Phone Unavailable Primary Care Provider [...] yrs or above (or HM Modifier)([facility]) 1945 Hepatitis C Virus Infection in Adolescents and Adults: Screening (or Modifier) ([facility]) 12/13/1965 SDOH Screening Reminder: Seda ually for all adults ([facility]) 12/13/1965 Tobacco Smoking Cessation: i n Adults excluding Women: Behavioral and Pharmacotherapy Interventions ([facility]) 12/13/1965 DTaP/Tdap/Td Vaccines ([facility]) (1 - Tdap) 12/13/1966 zzRETIRED Lipid Screening: E very 5 yrs for Women aged 45+ (or HM Modifier) ([facility]) 12/13/1993 Pneumococcal Vaccination Scr eening: Patients 50+ yrs of age ([facility]) (1 of 1 - PCV) 12/13/1997 Zoster/Shingles Vaccine Seri es Screening: Adults aged 18+ yrs (or HM Modifiers)([facility]) (1 of 2) 12/13/1997 Osteoporosis Screening to Pr event Fractures: Women aged 65 years+ ([facility]) 12/13/2012 RSV Vaccines (1 - 1-dose 75+ series) 12/13/2022 COVID-19 Vaccine Screening: Initial Series and Booster Status ([facility]) ( - 2023- season) 2024 Flu Vaccination: Ages 65+: Y early High Dose Recommended (or Modifier)([facility] ) 05/16/2025 Medical Devices Not on file Insurance [facility]
== END 2025-03-06 06:17 | disposition home or self-care (01) ==
LOC: CF 06:16
PROVIDERS: Visit Provider Internal Medicine
DX: G57.02 Lesion of sciatic nerve, left lower limb (principal)
CPT/HCPCS: 20552; J2003; J2795; J3301; Q9967

== ENCOUNTER 2025-03-06 11:32 | Outpatient (AMB) | payer MEDICARE, SELFPAY ==
[2025-03-06 11:39] VITALS: BP 120/54; PULSE 61; RESP 16; O2SAT 100
--- NOTE | 2025-03-06 11:39 | MHC.OFFVIS ---
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 Denies any recent cough, cold, infection, fever or other significant changes in medical history since last office visit. [facility] Medical History Vitamin D deficiency Sciatica, left side Thyroid nodule Osteoarthritis of hips, bilateral Left foot drop Hyperlipidemia Chronic kidney disease, stage 2 (mild) Lumbar degenerative disc disease Surgical History S/P removal of thyroid nodule Hx of appendectomy H/O: hysterectomy History of left hip replacement Social History Alcohol intake: current Alcohol intake frequency: a few times a week Alcohol type: beer and wine Patient Tobacco Use Status: Former Tobacco user Physical Exam Vital Signs: Last Vital Signs Pulse 61 03/06/25 11:39 Resp 16 03/06/25 11:39 BP 120/54 L 03/06/25 11:39 Pulse Ox 100 03/06/25 11:39 Oxygen Delivery Method Room Air 03/06/25 11:39 Office Procedures Injection-Therapetic Piriformis Muscle Injection, Left, fluoroscopy guided The procedure, its benefits, and its risks were explained and written informed consent was obtained from the patient. Immediately prior to starting the procedure, a time-out safety check was conducted. The patient's identification, procedure name, procedure site, and procedure laterality were confirmed with the patient. ? Patient was placed lateral on the fluoroscopy table and the lumbosacral area was prepped using ChloraPrep and draped with sterile drape in standard fashion. The C-arm was placed in an AP orientation. The skin and subcutaneous tissue was anesthetized using 1 mL of 0.75% plain lidocaine with 1.5-inch 25-gauge needle in the middle region of the line betweent the sacrum and greater trochanter.? A 3.5-inch 25-gauge spinal needle was slowly advanced towards the expected course of the muscle. Intra-muscular position was confirmed with contrast injection and spread pattern consistent with the piriformis muscle.? A total volume of 4 mL of solution containing 20 mg triamcinolone and rest 0.25% of ropivacaine was injected intra-muscularly. The stylet was reinserted and needle was removed. The patient tolerated the procedure well. Patient denied any lower extremity weakness or numbness. Patient was observed for 30 min and was discharged after fulfilling the standard discharge criteria. Assessment & Plan Assessment & Plan (1) Piriformis syndrome of left side: Code(s): G57.02 - Lesion of sciatic nerve, left lower limb Category: Medical Plan Patient is status post fluoroscopy guided left piriformis muscle therapeutic injection. Patient tolerated procedure well and was discharged home in stable condition with discharge instructions. All questions were answered. We will follow-up via telephone or in clinic to assess response to therapy. A follow-up appointment was made during today's visit. Orders: Orders FL guidance in treatment room Today G57.02 - Lesion of sciatic nerve, left lower limb Coding Level of Care Code Procedure Only Diagnoses Piriformis syndrome of left side G57.02
--- OUTSIDE RECORDS SUMMARY | 2025-03-06 12:09 | XMS_ITS | Clinical Summary ---
Author Organization [facility] [employer] Address [address] [place] [address] Care Team Providers Care Market Research Coordinator Name Role Phone Unavailable Primary Care Provider [...] Adults 18 yrs or above (or HM Modifier)([facility]) 1945 Hepatitis C Virus Infection in Adolescents and Adults: Screening (or Modifier) ([facility]) 12/13/1965 SDOH Screening Reminder: Seda ually for all adults ([facility]) 12/13/1965 Tobacco Smoking Cessation: i n Adults excluding Women: Behavioral and Pharmacotherapy Interventions ([facility]) 12/13/1965 DTaP/Tdap/Td Vaccines ([facility]) (1 - Tdap) 12/13/1966 zzRETIRED Lipid Screening: E very 5 yrs for Women aged 45+ (or HM Modifier) ([facility]) 12/13/1993 Pneumococcal Vaccination Scr eening: Patients 50+ yrs of age ([facility]) (1 of 1 - PCV) 12/13/1997 Zoster/Shingles Vaccine Seri es Screening: Adults aged 18+ yrs (or HM Modifiers)([facility]) (1 of 2) 12/13/1997 Osteoporosis Screening to Pr event Fractures: Women aged 65 years+ ([facility]) 12/13/2012 RSV Vaccines (1 - 1-dose 75+ series) 12/13/2022 COVID-19 Vaccine Screening: Initial Series and Booster Status ([facility]) ( - 2023- season) 2024 Flu Vaccination: Ages 65+: Y early High Dose Recommended (or Modifier)([facility] ) 05/16/2025 Medical Devices Not on file Insurance [facility]
== END 2025-03-06 12:30 | disposition home or self-care (01) ==
LOC: HO.PMCPRC 11:32
PROVIDERS: PCP Physician Assistant; Visit Provider Internal Medicine
DX: M79.18 Myalgia, other site (principal); G57.02 Lesion of sciatic nerve, left lower limb
CPT/HCPCS: 20552

== ENCOUNTER 2025-04-03 10:17 | Outpatient (AMB) | payer MEDICARE, SELFPAY ==
--- NOTE | 2025-04-03 10:18 | A.OFFVIS_ITS ---
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 Ocampo. The injection has reduced her pain level to 2/10, providing significant and almost complete pain relief for about a week and then ongoing 70-80% pain relief. She continues to experience intermittent pain in the left buttock, particularly when sitting for long periods. She has not taken pain medications like Tylenol or Ibuprofen recently, following her PCP's advice due to potential adverse effects. Previously, she underwent physical therapy, including massage and heat therapy, but has not resumed these therapies since the injection. Denies any recent cough, cold, infection, fever or any significant changes in medical history since last office visit. Past Procedures: 03/06/25: Left Piriformis muscle steroid [id number]% ongoing pain relief 01/23/25: Left Piriformis muscle injection-85% pain relief for 18 hours PRIOR: The patient is a very pleasant 79-year-old female presenting with low back pain related to lumbar degenerative disc disease and left-sided radiculopathy. The chronic back pain has intensified over the year, with a notable increase in left lower extremity discomfort. She reports having undergone left hip replacement in 2020, after which she developed continued numbness and foot drop on the left side due to nerve damage from the surgery per patient. Patient reports EMG study was performed after hip surgery, this report is not available today for review. She reports her right hip might need replacement in the near future as well. Previous attempts at pain management have included physical therapy 6 months ago with little effect, and planned back injections at [facility] were not completed due to cancellations. The patient's low back pain exacerbates with bending, prolonged sitting especially on hard surfaces, climbing stairs and presents with associated left-sided symptoms including leg numbness, tingling and chronic left foot numbness and foot drop. MRI lumbar spine report is noted below. Pain affects her daily activities and functioning, social interactions with her family, especially grandchildren, mobility, sleep and quality of life. Denies any fever or chills, abdominal or groin pain, bladder or bowel dysfunction or saddle anesthesia. - Affect: Chronic pain impacts functionality, but not significantly affecting mood or psychological well-being. - Analgesia: Tylenol Arthritis used with noted continuous pain management needs. - Adverse Effects: None reported. - Activities of Daily Living: Altered due to pain and left foot drop, limiting prolonged walking or standing. - Aberrant Drug Related Behaviors: None noted. Location: Low back pain radiates to left buttock and posterior LLE to the knee Duration: Chronic pain, worsening over past 1 year Characteristics of symptom or complaint: Aching, dull, tiring, numbness, tingling, heavy, tiring Aggravating or associated factors: Movements, bending, climbing, prolonged sitting, standing Relieving factors: Tylenol Arthritis, duloxetine, heat therapy, movement adjustments Treatment: PT, left foot AFO, lumbar MRI, evaluations at [facility] and [facility] Medical History Vitamin D deficiency Sciatica, left side Thyroid nodule Osteoarthritis of hips, bilateral Left foot drop Hyperlipidemia Chronic kidney disease, stage 2 (mild) Lumbar degenerative disc disease Surgical History S/P removal of thyroid nodule Hx of appendectomy H/O: hysterectomy History of left hip replacement Social History Alcohol intake: current Alcohol intake frequency: a few times a week Alcohol type: beer and wine Patient Tobacco Use Status: Former Tobacco user Review of Systems Const Details: - Musculoskeletal: Reports intermittent pain in the left buttock, especially when sitting for extended periods. All systems reviewed & are unremarkable except as noted in HPI and below Physical Exam Vital Signs: Last Vital Signs Pulse 61 04/03/25 10:23 BP 128/60 04/03/25 10:23 Pulse Ox 100 04/03/25 10:23 Oxygen Delivery Method Room Air 04/03/25 10:23 BMI result Body Mass Index 25.7 General: Appears afebrile. Alert and oriented. Mood and affect appropriate. Follows and participates in conversation appropriately. Respiratory effort is unlabored. No cough. Able to transition from sit to stand unassisted. Ambulates with normal heel strike and toe off on the right. Unable to stand on left heel/toes due to foot drop. General: Yes no CVA tenderness Back/Spine/Pelvis Back: no CVA tenderness Cervical Spine: normal cervical lordosis, cervical ROM normal and No Cervical spine tenderness Thoracic/Lumbar Spine: thoracic and lumbar spine normal to inspection, No Thoracic/lumbar spine scar(s), Lasegue's sign negative, straight leg raise negative bilaterally, pain with thoraco-lumbar ROM, No paraspinal muscle tenderness, No thoracic spinal tenderness and No lumbar spinal tenderness Pelvis: buttock tenderness (Piriformis muscle tenderness) on the left (mild) Sacroiliac joints: on the right nontender and on the left tender to palpation Results Reviewed Results Reviewed: Assessment & Plan Assessment & Plan (1) Sciatica, left side: Code(s): M54.32 - Sciatica, left side Category: Medical (2) Piriformis syndrome of left side: Code(s): G57.02 - Lesion of sciatic nerve, left lower limb Category: Medical (3) Lumbar spondylosis: Code(s): M47.816 - Spondylosis without myelopathy or radiculopathy, lumbar region Category: Medical Plan The plan involves monitoring the patient's pain levels and considering a repeat piriformis muscle injection if the pain returns to a higher level in the next three months. The patient is advised to use padding when sitting to alleviate discomfort, especially on hard surfaces. Physical therapy may be revisited to strengthen the affected area. Script for PT provided today. Continue local measures with ice or heat and Tylenol or Naproxen as needed. All questions and concerns have been answered and patient agreed with the treatment plan. Follow-up as needed. Patient was informed and verbally consented to the use of an ambient scribe for clinic note documentation during this visit. Orders: Orders 2 PT Evaluation and Treatment Today G57.02 - Lesion of sciatic nerve, left lower limb, M47.816 - Spondylosis without myelopathy or radiculopathy, lumbar region, M54.32 - Sciatica, left side Coding Level of Care Code Est Pt Level 4 (96498) Complex EM visit Add On G2211 Diagnoses Sciatica, left side M54.32 Piriformis syndrome of left side G57.02 Lumbar spondylosis M47.816
[2025-04-03 10:23] VITALS: BP 128/60; PULSE 61; O2SAT 100; BMI 25.7
--- OUTSIDE RECORDS SUMMARY | 2025-04-03 11:39 | XMS_ITS | Clinical Summary ---
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 Name Role Phone Unavailable Primary Care Provider [...] or above (or HM Modifier)([facility]) 12/13/1965 Hepatitis C Virus Infection in Adolescents and Adults: Screening (or Modifier) ([facility]) 12/13/1965 SDOH Screening Reminder: Seda brigettelly for all adults ([facility]) 12/13/1965 Tobacco Smoking Cessation: i n Adults excluding Women: Behavioral and Pharmacotherapy Interventions ([facility]) 12/13/1965 DTaP/Tdap/Td Vaccines ([facility]) (1 - Tdap) 12/13/1966 Pneumococcal Vaccination Scr eening: Patients 50+ yrs [...] Vaccine Screening: Initial Series and Booster Status ([facility]) ( - 2023- season) 2024 Flu Vaccination: Ages 65+: Y early High Dose Recommended (or Modifier)([facility]) 05/16/2025 Medical Devices Not on file Insurance [facility]
== END 2025-04-03 10:37 | disposition home or self-care (01) ==
LOC: HO.PMC 10:18
PROVIDERS: PCP Physician Assistant; Visit Provider Nurse Practitioner Family
DX: G57.02 Lesion of sciatic nerve, left lower limb (principal); M47.816 Spondylosis without myelopathy or radiculopathy, lumbar region
CPT/HCPCS: 99214; G2211

== ENCOUNTER → 2025-04-03 10:17 | Outpatient (BNVA) | payer MEDICARE, SELFPAY | PROVIDERS: PCP Physician Assistant; Visit Provider Nurse Practitioner Family | DX: M54.32 Sciatica, left side (principal); M47.816 Spondylosis without myelopathy or radiculopathy, lumbar region; G57.02 Lesion of sciatic nerve, left lower limb | CPT/HCPCS: 99212 ==